=== PATIENT | female | born 1995 | race American Indian/Alaskan Native ===

== ENCOUNTER 2016-12-04 14:00 | Inpatient (IN) | payer MEDICAID ==
[~2016-12-04 14:00] MED LIST: Oxytocin/Normal Saline 30 UNIT/500 ML BAG IV ONE
[2016-12-04] MEDS ORDERED: Citric Acid/Sodium Citrate Solution 30 ML Cup PO ONE (14:27)
[2016-12-04] MEDS ORDERED: Sodium Chloride 0.9% 10 ML Syringe FLUSH PRN (14:27)
[2016-12-04] MEDS ORDERED: Morphine PF 5 MG/10 ML SDV ONE (14:37)
[2016-12-04] MEDS ORDERED: ePHEDrine 50 MG/ML SDV ONE (14:37)
[2016-12-04] MEDS ORDERED: Midazolam 1 MG/ML 2 ML SDV ONE (14:37)
[2016-12-04] MEDS: Lactated Ringers 1,000 ML IV SCH ×4 (14:45→21:00)
[2016-12-04] MEDS ORDERED: Oxytocin/Normal Saline 60 UNIT/1,000 ML BAG ONE (14:48)
--- NOTE | 2016-12-04 14:53 | PCM.PREANE ---
Preanesthetic Assessment - Procedure Proposed Procedure: Section - Anesthesia/Transfusion/Family Hx Anesthesia History: Prior Anesthesia Without Reaction Type of Anesthesia Reaction: Allergy Family History of Anesthesia Reaction: No Transfusion History: No Prior Transfusion(s) Intubation History: Unknown - Review of Systems General: No Symptoms Pulmonary: No Symptoms Cardiovascular: No Symptoms Gastrointestinal: No symptoms Neurological: No Symptoms Other: Reports: None - Physical Assessment NPO Status Date: 12/03/16 NPO Status Time: 22:00 Pulse: 98 O2 Sat by Pulse Oximetry: 99 Respiratory Rate: 20 Blood Pressure: 132/72 Temperature: 97.6 F Height: 1.73 m Weight: 95.254 kg ASA Class: 2E Mental Status: Alert & Oriented x3 Dentition: Reports: Normal Dentition Thyro-Mental Finger Breadths: 3 Mouth Opening Finger Breadths: 3 ROM/Head Extension: Full Lungs: Clear to auscultation, Normal respiratory effort Cardiovascular: Regular Rate, Regular Rhythm - Lab Values: Laboratory Last Values WBC 11.3 10^3/uL (5.0-10.0) H 12/04/16 14:28 RBC 3.47 10^6/uL (4.2-5.4) L 12/04/16 14:28 Hgb 8.9 g/dL (12.0-16.0) L 12/04/16 14:28 Hct 28.9 % (37.0-47.0) L 12/04/16 14:28 MCV 83.3 fL (80-100) 12/04/16 14:28 MCH 25.6 pg (27.0-34.0) L 12/04/16 14:28 MCHC 30.8 g/dL (33.0-35.0) L 12/04/16 14:28 Plt Count 217 10^3/uL (150-450) 12/04/16 14:28 Neut % (Auto) 72.2 % (42.2-75.2) 12/04/16 14:28 Lymph % (Auto) 17.0 % (20.5-50.1) L 12/04/16 14:28 Meigs % (Auto) 10.0 % (2-8) H 12/04/16 14:28 Eos % (Auto) 0.6 % (1.0-3.0) L 12/04/16 14:28 Baso % (Auto) 0.2 % (0.0-1.0) 12/04/16 14:28 - Allergies Allergies/Adverse Reactions: Allergies Allergy/AdvReac Type Severity Reaction Status Date / Time No Known Allergies Allergy Verified 12/04/16 14:47 - Blood Blood Available: No Product(s) Available: None - Anesthesia Plan Pre-Op Medication Ordered: None - Acknowledgements Anesthesia Type Planned: General Anesthesia, Spinal Pt an Appropriate Candidate for the Planned Anesthesia: Yes Alternatives and Risks of Anesthesia Discussed w Pt/Guardian: Yes Pt/Guardian Understands and Agrees with Anesthesia Plan: Yes Additional Comments: Patient ID'd. R/B of general and spinal anesthesia is discussed with patient. The plan A is spinal and B is general. Patient agreed consent signed. 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 OB/BYN History: , twin Musculoskeletal History: Reports: None Neurological History: Reports: None Psychiatric History: Reports: None Endocrine/Metabolic History: Reports: None Hematologic History: Reports: None Immunologic History: Reports: None Oncologic (Cancer) History: Reports: None Dermatologic History: Reports: None - Infectious Disease History Infectious Disease History: Reports: None - Past Surgical History Head Surgeries/Procedures: Reports: None - SUBSTANCE USE Smoking Status *Q: Unknown Ever Smoked Second Hand Smoke Exposure: No Days Per Week of Alcohol Use: 0 Recreational Drug Use History: No Recreational Drug Type: Reports: Marijuana/Hashish - HOME MEDS Home Medications: Home Meds Pre- Vitamins 1 tab PO DAILY 10/22/15 [History] Ranitidine HCl [Ranitidine] 150 mg PO BID 10/22/15 [History] Ferrous Sulfate 325 mg PO TIDMEALS 11/02/16 [History] - CURRENT (IN HOUSE) MEDS Current Meds: Current Medications Cefazolin Sodium/Dextrose 2 gm (/ Premix) 50 mls @ 100 mls/hr IV ONETIME ONE Stop: 12/04/16 14:56 Sodium Chloride (Saline Flush) 10 ml FLUSH ASDIRECTED PRN PRN Reason: Keep Vein Open Discontinued Medications Citric Acid/Sodium Citrate (Bicitra Solution) 30 ml PO ONETIME ONE Stop: 12/04/16 14:28 Ephedrine Sulfate (Ephedrine Sulfate) Confirm Administered Dose 50 mg .ROUTE .STK-MED ONE Stop: 12/04/16 14:38 Midazolam HCl (Versed 1 Mg/Ml) Confirm Administered Dose 2 mg .ROUTE .STK-MED ONE Stop: 12/04/16 14:38 Morphine Sulfate (Duramorph Pf) Confirm Administered Dose 5 mg .ROUTE .STK-MED ONE Stop: 12/04/16 14:38
[2016-12-04] MEDS: ceFAZolin 2 GM in Premix Bag 1 BAG IV ONE (15:09)
--- NOTE | 2016-12-04 15:55 | HP ---
The patient admitted on 12/04/2016 to [facility] in [place]. HISTORY OF PRESENT ILLNESS: The patient is a 21-year-old, G3, P1, at 36 weeks and 6 days with di-di twin IUP. The patient did experience loss of fluid just roughly about an hour ago. It was clear fluid. Really, no contractions. No vaginal bleeding. Good movement. OB HISTORY: She did have 1 miscarriage and then she had 1 vaginal delivery in February 2014, 3805 g. INTERN BRAND HISTORY: She did have chlamydia once, which was treated. No abnormal Paps. PAST MEDICAL HISTORY: Negative except for anemia. PAST SURGICAL HISTORY: Negative. LABORATORY DATA: The patient's labs, she did have a normal ultrasound and interval growth scans, blood type A positive, antibody negative, rubella immune, RPR negative, HIV negative, GC chlamydia negative. The patient's 1 hour was 157, but 3-hour was normal. She is GBS negative. Her last hemoglobin just this month was 9.7 consistent with the anemia. PHYSICAL EXAMINATION: Vital signs are stable. Blood pressure is normal. EFM is reactive, reassuring x2. A few contractions on the toco. The patient is grossly ruptured. Cervix is roughly 2-1/2, 75 and -1. Bedside ultrasound was performed and it definitely showed that twin A is in a breech presentation where twin B seemed to be more transverse. Lungs are clear to auscultation bilaterally. Heart had a regular rate and rhythm. ASSESSMENT AND PLAN: This is a di-di twin intrauterine at 36 plus weeks gestational age with PROM and malpresentation. The patient does consent to primary low-transverse . She also consents to blood if needed since she is anemic. The patient last ate last night. Therefore, we will proceed with this shortly. [facility] /[id number]
[2016-12-04] MEDS ORDERED: ePHEDrine 50 MG/ML SDV IV ONE (16:10)
[2016-12-04] MEDS ORDERED: Midazolam 1 MG/ML 2 ML SDV IV ONE (16:10)
[2016-12-04] MEDS ORDERED: Propofol 200 MG/20 ML SDV IV ONE (16:10)
[2016-12-04] MEDS ORDERED: Ondansetron 4 MG/2 ML SDV IV ONE (16:10)
[2016-12-04] MEDS ORDERED: Ketorolac 30 MG/ML SDV IVPUSH ONE (16:10)
[2016-12-04] MEDS ORDERED: Misoprostol 400 MCG (4 X 100 MCG TAB) RECTAL PRN (16:10)
[2016-12-04] MEDS ORDERED: Ondansetron 4 MG/2 ML SDV IV PRN (16:10)
[2016-12-04] MEDS ORDERED: Carboprost Tromethamine 250 MCG/1 ML Amp IM ONE (16:10)
[2016-12-04] MEDS ORDERED: ePHEDrine 50 MG/ML SDV IVPUSH PRN (16:10)
[2016-12-04] MEDS ORDERED: diphenhydrAMINE 50 MG/ML SDV IVPUSH PRN (16:10)
[2016-12-04] MEDS ORDERED: Methylergonovine 0.2 MG/1 ML Amp IM PRN (16:10)
[2016-12-04] MEDS ORDERED: Morphine PF 150 MG/30 ML PCA Syringe ONE (16:10)
[2016-12-04] MEDS ORDERED: Naloxone 2 MG/2 ML Syringe IVPUSH PRN (16:10)
[2016-12-04] MEDS ORDERED: Acetaminophen 325 MG Tab PO PRN (16:10)
[2016-12-04] MEDS ORDERED: Acetaminophen/oxyCODONE 325-5 MG Tab PO PRN (16:10)
[2016-12-04] MEDS ORDERED: Oxytocin/Normal Saline 30 UNIT/500 ML BAG IV SCH (16:30)
[2016-12-04] MEDS ORDERED: Ondansetron 4 MG/2 ML SDV ONE (16:31)
[2016-12-04] MEDS ORDERED: Ketorolac 30 MG/ML SDV ONE (16:31)
[2016-12-04] MEDS ORDERED: Propofol 200 MG/20 ML SDV ONE (16:32)
[2016-12-04] MEDS: Docusate Sodium 100 MG Cap PO PRN (22:06)
[2016-12-04] MEDS: Ketorolac 30 MG/ML SDV IVPUSH SCH (22:06)
[2016-12-04] MEDS: Simethicone 80 MG Tab.Chew PO PRN (22:06)
--- NOTE | 2016-12-04 22:11 | OR ---
DATE: 12/04/2016 PREOPERATIVE DIAGNOSIS: Diamniotic-dichorionic twin at 36+ weeks' gestational age with premature rupture of membranes and malpresentation. POSTOPERATIVE DIAGNOSIS: Diamniotic-dichorionic twin at 36+ weeks' gestational age with premature rupture of membranes and malpresentation. PROCEDURE: Primary low-transverse . CREDIT INTERN: Reilly Lazo MD ANESTHESIA: Spinal. FINDINGS: There was a viable twin . Twin A was delivered breech, baby weighed 3340 g, scores were 9 and 9. Twin B was delivered cephalic, 2710 g, scores 8 and 9. ESTIMATED BLOOD LOSS: 1200 mL. PROCEDURE IN DETAIL: The patient presented to Labor and Delivery, where she was found to be grossly ruptured also at 3 cm. Bedside ultrasound still showed the presenting twin to be breech; therefore, she did consent to a primary low- transverse . She did have anemia and also consented to transfusion as needed. The patient was taken to the operating room, where spinal anesthesia was induced. She was prepped and draped in the normal sterile fashion with a Munoz in place and leftward tilt. A skin incision was made 2 fingerbreadths above the pubic symphysis and carried down to the underlying fascia. Fascia was incised in the midline. Fascial incision was extended laterally using heavy scissors. Upper aspect of the fascia was grasped with Rosibel clamps, and the rectus muscles were dissected off bluntly and with the heavy scissors. Lower aspect of the fascia was grasped with Rosibel clamps, and again, the rectus muscles were dissected off bluntly and with the heavy scissors. The rectus muscles were in the midline. Peritoneum was entered with blunt finger dissection, and the Barak retractor was then placed. The vesicouterine peritoneum was grasped with a pickup, entered sharply with the Metzenbaum scissors, and the bladder flap was created digitally. The lower uterine segment was incised in a transverse fashion with a scalpel and that incision was extended using the Darnell method. The first infant's breech was grasped without any difficulties. The infant was delivered. Cord was cut and clamped, and the was handed off to Dr. Valdez. Cord blood was collected. The AROM was performed of the second amniotic sac and that was delivered vertex without any difficulties. Cord was cut and clamped. The infant was again handed off to Dr. Valdez, and cord blood was collected. Both placentas were then delivered and sent to Pathology. The uterus was exteriorized and cleared of all clots and debris. The uterus was given vigorous massage, and the hysterotomy was repaired with a running locked 0 Vicryl with a second layer of 0 Vicryl imbricating for excellent hemostasis. The uterus was returned to the abdomen. Pelvis was copiously irrigated, and the Barak retractor was removed. The peritoneum was reapproximated using a 3-0 Vicryl. Fascia was repaired using a running 0 Vicryl, and the subcutaneous fat was irrigated. The skin was repaired using a 4-0 Vicryl on a Tico needle with Steri-Strips over that. The patient tolerated the procedure well. Sponge, lap, and needle counts were correct x2. The patient was taken to the recovery room in stable condition. Both babies were doing well. We will recheck her hemoglobin in the morning. [facility] /[id number]
[2016-12-05] MEDS: ceFAZolin 2 GM in Premix Bag 1 BAG IV ONE (00:58)
[2016-12-05] MEDS: Ketorolac 30 MG/ML SDV IVPUSH SCH ×2 (04:45→10:25)
[2016-12-05] MEDS: Lactated Ringers 1,000 ML IV SCH (04:58)
[2016-12-05] MEDS: Prenatal Multivitamin with Calcium/Folic Acid/Iron Tab PO SCH (08:54)
[2016-12-05] MEDS: Ferrous Sulfate 325 MG Tab PO SCH ×3 (08:54→17:27)
[2016-12-05] MEDS: Simethicone 80 MG Tab.Chew PO PRN ×2 (08:54→21:21)
[2016-12-05] MEDS: Docusate Sodium 100 MG Cap PO PRN ×2 (08:55→21:21)
--- NOTE | 2016-12-05 09:10 | PN ---
DATE: 12/05/2016 Postoperative day #1, status post primary low transverse with twins with unstable lie. SUBJECTIVE: The patient is tolerating some p.o.'s and has ambulated once. No flatus. Munoz is in place. She denies any chest pain, shortness of breath, or lightheadedness. OBJECTIVE: Vital Signs: Temperature 97.7, heart rate 79, blood pressure 107/54, and respiratory rate is 14. Appearance: Lying in the bed in no distress. Lungs: Clear to auscultation bilaterally. Heart: S1 and S2. Regular rate and rhythm. Abdomen: Firm uterus at around +1 above the umbilicus. Aquacel dressing appears dry and intact. JUAN JOSÉ hose and SCDs are on. LABORATORY DATA: White cell count 13.1, hemoglobin 6.9, and platelets 197,000. Predelivery hemoglobin was 8.9. ASSESSMENT AND PLAN: 1. Postoperative day #1, status post primary low transverse section with 2-layer uterine closure. 2. Anemia of acute blood loss. Hemoglobin dropping from 8.9 to 6.9. At this point in time, shared decision was made with the patient to recheck a CBC later in the day, we will follow symptoms and vitals, and if still low, may consider blood transfusion. I did discuss risks, benefits, alternatives, and complications of this. She understands and agrees if it is felt necessary, and otherwise we will follow closely. [facility] /[id number]
--- NOTE | 2016-12-05 15:25 | PCM.POSTAN ---
POST ANESTHESIA ASSESSMENT - MENTAL STATUS Mental Status: alert, oriented - VITAL SIGNS Pulse Rate: 88 SaO2: 99 Resp Rate: 18 Blood Pressure: 128/78 Temperature: 97 F - RESPIRATORY Respiratory Status: respiratory rate WNL, airway patent, O2 saturation stable - CARDIOVASCULAR CV Status: pulse rate WNL, blood pressure stable - GASTROINTESTINAL GI Status: no symptoms - POST OP HYDRATION Hydration Status: adequate & stable (Patient is sitting in bed. Tolerated procedure well and epigastric pain is controlled well with morphine. Regained the full function of her lower extremeties.)
[2016-12-05] MEDS: Ibuprofen 800 MG Tab PO PRN (21:21)
[2016-12-05] MEDS: Acetaminophen/oxyCODONE 325-5 MG Tab PO PRN (22:52)
[2016-12-06] MEDS: Simethicone 80 MG Tab.Chew PO PRN ×2 (09:00→22:33)
[2016-12-06] MEDS: Acetaminophen/oxyCODONE 325-5 MG Tab PO PRN ×2 (09:00→22:33)
[2016-12-06] MEDS: Prenatal Multivitamin with Calcium/Folic Acid/Iron Tab PO SCH (09:00)
[2016-12-06] MEDS: Ferrous Sulfate 325 MG Tab PO SCH ×3 (09:00→20:01)
[2016-12-06] MEDS: Docusate Sodium 100 MG Cap PO PRN ×2 (09:01→22:32)
--- NOTE | 2016-12-06 12:53 | PN ---
DATE: 12/06/2016 SUBJECTIVE: Postoperative day #2, status post primary for breech twins is doing well. She has been ambulating and tolerating a regular diet, passing flatus, and voiding without difficulties. Denies any chest pain or shortness of breath. Admits to feeling some soreness today more so than she did yesterday. Lochia has been minimal. No fever. No shortness of breath. Denies any lightheadedness or fatigue associated with her anemia, and declines blood transfusion. OBJECTIVE: Vital Signs: Temperature is 97.3, pulse of 68, blood pressure 105/55, and respiratory rate of 20, with an O2 saturation 98% on room air. Heart: Regular without obvious murmur. Lungs: Clear to auscultation bilaterally. Abdomen: Soft and nontender. Bowel sounds are positive in all 4 quadrants. Area near the incision is tender as would be expected. Dressing was removed and the incision is dry, and intact with Steri-Strips in place. A small amount of old dry blood, but nothing fresh and no active oozing or bleeding. Extremities: No edema, erythema, or tenderness noted. Skin: pallor noted. LABORATORY DATA: Admission hemoglobin 8.9, post-op 6.9, yesterday's was 7.4, today's is 6.9, Platelets have remained stable. ASSESSMENT: 1. Postoperative day #2, status post primary section for twins. 2. Anemia of and anemia of acute blood loss. 3. Obesity. 4. Status post premature rupture of membranes with malpresentation. PLAN: Continue routine postoperative cares and anticipate discharge home tomorrow as long as all continues to go well. Her questions were answered. Discussed with her risks and benefits of blood transfusion and she declines. [facility] /[id number] LOAN
[2016-12-06] MEDS: Ibuprofen 800 MG Tab PO PRN (14:48)
[2016-12-07] MEDS: Acetaminophen/oxyCODONE 325-5 MG Tab PO PRN ×2 (05:27→09:31)
[2016-12-07] MEDS: Prenatal Multivitamin with Calcium/Folic Acid/Iron Tab PO SCH (09:31)
[2016-12-07] MEDS: Ferrous Sulfate 325 MG Tab PO SCH ×2 (09:31→09:44)
[2016-12-07] MEDS: Docusate Sodium 100 MG Cap PO PRN (09:31)
[2016-12-07] MEDS: Simethicone 80 MG Tab.Chew PO PRN (09:37)
[2016-12-07] MEDS: Ibuprofen 800 MG Tab PO PRN (09:37)
[2016-12-07 13:09] VITALS: BP 118/64
--- NOTE | 2016-12-12 04:22 | DISCH ---
BRIEF HISTORY: A 21-year-old, 3, para 1-0-1-1, presented in spontaneous labor at 36-6/7th weeks gestation with twin gestation, baby A breech and baby B vertex. See admission history and physical for full details. Primary low transverse section was carried out by Dr. Acharya without complications resulting in delivery of baby A boy, scores 9 and 9, weight 3340 g. Baby B is a girl, scores 8 and 9, weight 2710 g. Surgery was without complications. See operative report for full details. HOSPITAL COURSE: Hospital course has been good. The patient has been meeting post-operative milestones, ambulating, tolerating, regular diet, passing flatus, voiding without difficulties. No chest pain or shortness of breath. Bleeding has been minimal. She is bottle feeding her babies and has not had any other problems noted. She did have significant blood loss during surgery and hemoglobin being very low and she had pallor, but was otherwise fairly asymptomatic and refusing blood transfusion. On day of discharge, she was doing well and there were no contraindications to discharge. DISCHARGE CONDITION: Good. PHYSICAL EXAMINATION: Vital Signs: Temperature is 98.8, pulse 77, blood pressure 118/64, respiratory rate of 18, and O2 saturations 99% on room air. HEENT: Remarkable only for some pallor in the face and lips. Heart: Regular without obvious murmur. Lungs: Clear to auscultation bilaterally. Abdomen: Soft without masses. Uterus is firm and below the umbilicus. Incision site is clean, dry, and intact. Extremities: Trace edema. No erythema or tenderness. LABORATORY DATA: Show an admission hemoglobin of 8.9, platelets of 217. Lowest hemoglobin during her stay was 6.9; at discharge, it was back up to 7.5. DISPOSITION: Home with family. DISCHARGE MEDICATIONS: 1. Iron 325 mg twice daily. 2. Colace 100 mg twice daily. 3. Ibuprofen 800 mg every 8 hours as needed for pain. 4. Percocet 5/325 mg one to two tablets every 4 to 6 hours as needed for pain. 5. vitamins, continue 1 daily. FOLLOWUP: She will be seen in the office in the next few days for postoperative check when she brings in the twins. DISCHARGE INSTRUCTIONS: Routine postoperative care instructions provided, specifically to come in if she has any complications with her wound such as dehiscence, drainage, or bleeding. Also, if she develops any signs or symptoms of infection such as fever, chills, foul-smelling drainage, discharge, increased pain or tenderness, or any other concerns. Her questions have been answered. [facility] /[id number] LOAN
== END 2016-12-07 13:00 | disposition home or self-care (01) | DRG 765 ==
LOC: UNDOADMOB 14:00 → DL.OB 14:00 → OBSVTOIN 14:28 → DL.MS 12-06 10:21 → EDSTATUS 12-12 07:30
PROVIDERS: ADMIT Family Medicine; ATTEND Family Medicine
DX: O32.1XX1 Maternal care for breech presentation, fetus 1 (principal); D62 Acute posthemorrhagic anemia; O42.913 Preterm premature rupture of membranes, unspecified as to length of time between rupture and onset of labor, third trimester; Z3A.36 36 weeks gestation of pregnancy; Z37.2 Twins, both liveborn; O30.043 Twin pregnancy, dichorionic/diamniotic, third trimester; O99.019 Anemia complicating pregnancy, unspecified trimester; O99.03 Anemia complicating the puerperium
CPT/HCPCS: 01961; 36415; 82962; 85018; 85025; 85027; 86850; 86900; 86901; A9270-GY; J0690; J1200; J1885; J2250; J2274; J2405; J2590; J2704; J7050; J7120

== ENCOUNTER 2018-06-23 12:52 | Emergency (ER) | payer SELFPAY ==
[2018-06-23] MEDS ORDERED: Sodium Chloride 0.9% 10 ML Syringe FLUSH PRN (13:09)
[2018-06-23] MEDS ORDERED: Sodium Chloride 0.9% 1,000 ML IV ONE (13:19)
[2018-06-23] MEDS ORDERED: HYDROmorphone 1 MG/ML Syringe IVPUSH ONE (13:19)
[2018-06-23] MEDS ORDERED: Ondansetron 4 MG/2 ML SDV IV ONE (13:19)
[2018-06-23 13:41] LABS: ANION GAP 13.5; CHLORIDE,CL 103 mmol/L (101-111); SODIUM,NA 136 mmol/L (135-145)
[2018-06-23] MEDS ORDERED: Iopamidol 612 MG/ML 100 ML Bottle IVPUSH ONE (14:06)
--- NOTE | 2018-06-23 14:54 | CT ---
Clinical history: 23-year-old 220 pound female emergency department with right upper quadrant (RUQ) abdominal pain. No surgeries. Scan technique: Volume acquisition of data from the abdomen and pelvis obtained without oral contrast but during intravenous administration 100 cc nonionic Isovue contrast (3 cc/s via injector) while the patient was lying supine on the Siemens multi slice CT scanner [place], [place]. All data archived in the PACS system for storage, reformatting axial/sagittal/coronal planes and study. Interpretation: Abnormal. 1. The gallbladder is distended and inhomogeneously dense with what appear to be noncalcified intraluminal stones (elective ultrasound confirmation of probable stones recommended). 2. Normal hepatic size, anatomic configuration and homogeneous density. No intrahepatic cystic or solid mass lesion but, specifically, abnormal dilatation (9.1 mm) of the common bile duct (CBD) suggesting possibility of tiny noncalcified stone impacted distally at the ampulla of Vater. No abnormal dilatation of the intrahepatic biliary ducts and normal-appearing pancreas. 3. Stomach, spleen, adrenal glands and kidneys unremarkable. No renal cortical mass lesion, nephrolithiasis or obstructive uropathy. Symmetrically distended normal appearing urinary bladder. 4. Solitary 2.5 cm diameter right ovarian cyst (smaller 1.5 cm diameter left ovarian cyst). Normal midline uterus. 5. Normal appendix RLQ. Terminal ileum unremarkable. No pelvic or abdominal mass lesion, mesenteric or retroperitoneal lymphadenopathy, signs of mechanical bowel obstruction, inflammatory "dirty" peritoneal fat, ascites or free intraperitoneal air. 6. Normal heart. Lung bases clear. Normal caliber abdominal aorta. Lumbar spine unremarkable. CONCLUSION: Abnormal appearance (diseased) gallbladder and dilated common bile duct (see above).
--- NOTE | 2018-06-23 15:21 | EDM.PDOC ---
Scribed by Kayla Avendano 06/23/18 [id number] for Neel Ferrer MD ED HPI GENERAL MEDICAL PROBLEM - General Chief Complaint: Abdominal Pain Stated Complaint: STOMACH ACHE [id number] Time Seen by Provider: 06/23/18 12:57 Source of Information: Reports: Patient, RN, RN Notes Reviewed History Limitations: Reports: No Limitations - History of Present Illness INITIAL COMMENTS - FREE TEXT/NARRATIVE: Patient presents to ER with complaint of RUQ abdominal pain that radiates to the right mid-to upper back, and is associated with nausea and vomiting since 10AM this morning. She has had several similar episodes of RUQ pain, but never this severe, and never for this long of duration. She states she was here a month to six weeks ago and told she had an ulcer and not to eat fatty foods. She was also advised to get an outpatient gallbladder evaluation, but has not had that appointment yet. She last ate sausage, eggs and greasy food last night. No fever or chills. She is currently nauseated. Denies diarrhea, constipation, or urinary symptoms. Onset: Today Duration: Getting Worse Location: Reports: Abdomen Quality: Reports: Ache Severity: Severe Improves with: Reports: None Worsens with: Reports: Other (eating fatty foods) Associated Symptoms: Reports: No Other Symptoms Epigastric Pain Score (Numeric/FACES): 8 - Related Data Allergies Allergy/AdvReac Type Severity Reaction Status Date / Time No Known Allergies Allergy Verified 06/23/18 13:05 Home Meds: Home Meds Ranitidine HCl [Ranitidine] 150 mg PO BID 10/22/15 [History] Ibuprofen [IJD: Ibuprofen] 600 mg PO Q6H PRN #40 tablet 12/07/16 [Rx] Past Medical History - Past Health History Medical/Surgical History: Denies Medical/Surgical History HEENT History: Reports: None Cardiovascular History: Reports: None Respiratory History: Reports: None Gastrointestinal History: Reports: None Genitourinary History: Reports: None SHIPPING LEAD History: Reports: Other SHIPPING LEAD History: , twin Musculoskeletal History: Reports: None Neurological History: Reports: None Psychiatric History: Reports: None Endocrine/Metabolic History: Reports: None Hematologic History: Reports: None Immunologic History: Reports: None Oncologic (Cancer) History: Reports: None Dermatologic History: Reports: None - Infectious Disease History Infectious Disease History: Reports: None - Past Surgical History Head Surgeries/Procedures: Reports: None Social & Family History - Family History Family Medical History: Noncontributory - Caffeine Use Caffeine Use: Reports: Soda - Living Situation & Occupation Living situation: Reports: with Family ED ROS GENERAL - Review of Systems Review Of Systems: ROS reveals no pertinent complaints other than HPI. ED EXAM, GI/ABD - Physical Exam Exam: See Below Exam Limited By: No Limitations General Appearance: Alert, WD/WN, No Apparent Distress, Obese Eyes: Bilateral: Normal Appearance (No scleral icterus), EOMI Nose: Normal Inspection Throat/Mouth: Normal Inspection, Normal Lips, Normal Teeth, Normal Gums, Normal Oropharynx, Normal Voice, No Airway Compromise Head: Atraumatic, Normocephalic Neck: Normal Inspection, Supple, Non-Tender, Full Range of Motion Respiratory/Chest: No Respiratory Distress, Lungs Clear, Normal Breath Sounds, No Accessory Muscle Use, Chest Non-Tender Cardiovascular: Regular Rate, Rhythm GI/Abdominal Exam: Normal Bowel Sounds, Soft, No Distention, Tender (RUQ). No: Guarding, Rigid, Rebound (Female) Exam: Deferred Rectal (Female) Exam: Deferred Back Exam: Normal Inspection, Full Range of Motion. No: CVA Tenderness (L), CVA Tenderness (R) Extremities: Normal Inspection Neurological: Alert, Oriented, No Motor/Sensory Deficits Psychiatric: Normal Affect, Normal Mood Skin Exam: Warm, Dry, Intact, Normal Color, No Rash Course - Vital Signs Last Recorded V/S: Last Vital Signs Temp 36.3 C 06/23/18 13:51 Pulse 68 06/23/18 13:51 Resp 18 06/23/18 13:51 BP 109/62 06/23/18 13:51 Pulse Ox 99 06/23/18 13:51 - Orders/Labs/Meds Orders: Active Orders 24 hr Category Date Time Status Peripheral IV Care [RC] . DIRECTED Care 06/23/18 13:09 Active CULTURE URINE [RM] Stat Lab 06/23/18 13:58 Received Sodium Chloride 0.9% [Saline Flush] Med 06/23/18 13:09 Active 10 ml FLUSH ASDIRECTED PRN Peripheral IV Insertion Adult [OM.PC] Stat Oth 06/23/18 13:09 Ordered Medication Orders Sodium Chloride (Saline Flush) 10 ml FLUSH ASDIRECTED PRN PRN Reason: Keep Vein Open Last Admin: 06/23/18 13:31 Dose: 10 ml Labs: Laboratory Tests 06/23/18 06/23/18 06/23/18 Range/Units 13:13 13:13 13:58 WBC 8.8 (5.0-10.0) 10^3/uL RBC 4.24 (4.2-5.4) 10^6/uL Hgb 12.4 (12.0-16.0) g/dL Hct 36.6 L (37.0-47.0) % MCV 86.3 (80-100) fL MCH 29.2 (27.0-34.0) pg MCHC 33.9 (33.0-35.0) g/dL Plt Count 263 (150-450) 10^3/uL Neut % (Auto) 79.2 H (42.2-75.2) % Lymph % (Auto) 12.3 L (20.5-50.1) % [place] % (Auto) 7.8 (2-8) % Eos % (Auto) 0.6 L (1.0-3.0) % Baso % (Auto) 0.1 (0.0-1.0) % Sodium 136 (135-145) mmol/L Potassium 3.5 L (3.6-5.0) mmol/L Chloride 103 (101-111) mmol/L Carbon Dioxide 23.0 (21.0-31.0) mmol/L Anion Gap 13.5 BUN 6 L (7-18) mg/dL Creatinine 0.6 (0.6-1.3) mg/dL Est Cr Clr Drug Dosing 145.85 mL/min Estimated GFR (MDRD) > 60 BUN/Creatinine Ratio 10.00 Glucose 110 H (74-105) mg/dL Calcium 8.8 (8.4-10.2) mg/dl Total Bilirubin 1.3 H (0.2-1.0) mg/dL AST 280 H (10-42) IU/L ALT 129 H (10-60) IU/L Alkaline Phosphatase 81 (42-121) IU/L Total Protein 6.5 L (6.7-8.2) g/dl Albumin 3.6 (3.2-5.5) g/dl Globulin 2.9 Albumin/Globulin Ratio 1.24 Amylase 149 H (28-100) U/L Lipase 123 H (22-51) U/L Urine Color Yellow (YELLOW) Urine Appearance Slightly cloudy (CLEAR) Urine pH 7.5 (5.0-9.0) Ur Specific [place] 1.015 (1.005-1.030) Urine Protein Negative (NEGATIVE) Urine Glucose (UA) Negative (NEGATIVE) Urine Ketones Negative (NEGATIVE) Urine Occult Blood Large H (NEGATIVE) Urine Nitrite Negative (NEGATIVE) Urine Bilirubin Negative (NEGATIVE) Urine Urobilinogen 1.0 (0.2-1.0) mg/dL Ur Leukocyte Esterase Trace H (NEGATIVE) Urine RBC >100 H /HPF Urine WBC 0-5 (0-5/HPF) /HPF Ur Epithelial Cells Moderate H /HPF Urine Bacteria Few (0-FEW/HPF) /HPF Urine HCG, Qual 06/23/18 Range/Units 13:58 WBC (5.0-10.0) 10^3/uL RBC (4.2-5.4) 10^6/uL Hgb (12.0-16.0) g/dL Hct (37.0-47.0) % MCV (80-100) fL MCH (27.0-34.0) pg MCHC (33.0-35.0) g/dL Plt Count (150-450) 10^3/uL Neut % (Auto) (42.2-75.2) % Lymph % (Auto) (20.5-50.1) % [place] % (Auto) (2-8) % Eos % (Auto) (1.0-3.0) % Baso % (Auto) (0.0-1.0) % Sodium (135-145) mmol/L Potassium (3.6-5.0) mmol/L Chloride (101-111) mmol/L Carbon Dioxide (21.0-31.0) mmol/L Anion Gap BUN (7-18) mg/dL Creatinine (0.6-1.3) mg/dL Est Cr Clr Drug Dosing mL/min Estimated GFR (MDRD) BUN/Creatinine Ratio Glucose (74-105) mg/dL Calcium (8.4-10.2) mg/dl Total Bilirubin (0.2-1.0) mg/dL AST (10-42) IU/L ALT (10-60) IU/L Alkaline Phosphatase (42-121) IU/L Total Protein (6.7-8.2) g/dl Albumin (3.2-5.5) g/dl Globulin Albumin/Globulin Ratio Amylase (28-100) U/L Lipase (22-51) U/L Urine Color (YELLOW) Urine Appearance (CLEAR) Urine pH (5.0-9.0) Ur Specific [place] (1.005-1.030) Urine Protein (NEGATIVE) Urine Glucose (UA) (NEGATIVE) Urine Ketones (NEGATIVE) Urine Occult Blood (NEGATIVE) Urine Nitrite (NEGATIVE) Urine Bilirubin (NEGATIVE) Urine Urobilinogen (0.2-1.0) mg/dL Ur Leukocyte Esterase (NEGATIVE) Urine RBC /HPF Urine WBC (0-5/HPF) /HPF Ur Epithelial Cells /HPF Urine Bacteria (0-FEW/HPF) /HPF Urine HCG, Qual Negative Meds: Medications Generic Name Dose Route Start Last Admin Trade Name Freq PRN Reason Stop Dose Admin Sodium Chloride 10 ml 06/23/18 13:09 06/23/18 13:31 Saline Flush FLUSH 10 ml ASDIRECTED PRN Administration Keep Vein Open Discontinued Medications Generic Name Dose Route Start Last Admin Trade Name Freq PRN Reason Stop Dose Admin Hydromorphone HCl 1 mg 06/23/18 13:19 06/23/18 13:28 Dilaudid IVPUSH 06/23/18 13:20 1 mg ONETIME ONE Administration Sodium Chloride 1,000 mls @ 999 mls/hr 06/23/18 13:19 06/23/18 13:26 Normal Saline IV 06/23/18 14:19 999 mls/hr .BOLUS ONE Administration Iopamidol 100 ml 06/23/18 14:06 06/23/18 14:18 Isovue-300 (61%) IVPUSH 06/23/18 14:07 100 ml ONETIME ONE Administration Ondansetron HCl 4 mg 06/23/18 13:19 06/23/18 13:27 Zofran IV 06/23/18 13:20 4 mg ONETIME ONE Administration - Radiology Interpretation Free Text/Narrative:: CT abdomen and pelvis: The gallbladder is distended and inhomogeneously dense with what appear to be noncalcified intraluminal stones (elective ultrasound confirmation of probable stones recommended). Normal hepatic size, anatomic configuration and homogeneous density. No intrahepatic cystic or solid mass lesion but, specifically, abnormal dilatation (9.1mm) of the common bile duct ( CBD) suggesting possibility of tiny noncalcified stone impacted distally at the ampulla of Vater. No abnormal dilatation of the intrahepatic biliary ducts and normal-appearing pancreas. Stomach, spleen, adrenal glands and kidneys unremarkable. No renal cortical mass lesion, nephrolithiasis or obstructive uropathy. Symmetrically distended normal appearing urinary bladder. Solitary 2.5cm diameter right ovarian cyst (smaller 1.5cm diameter left ovarian cyst). Normal midline uterus. Normal appendix RLQ. Terminal ileum unremarkable. No pelvic or abdominal mass lesion, mesenteric or retroperitoneal lymphadenopathy, signs of mechanical bowel intraperitoneal air. Normal heart. Lung bases clear. Normal caliber abdominal aorta. Lumbar spine unremarkable. See rad report. Departure - Departure Time of Disposition: 15:20 Disposition: Home, Self-Care 01 Condition: Fair Clinical Impression: Acute cholecystitis due to biliary calculus - Discharge Information *PRESCRIPTION DRUG MONITORING PROGRAM REVIEWED*: Not Applicable *COPY OF PRESCRIPTION DRUG MONITORING REPORT IN PATIENT CAROLYNN: Not Applicable Forms: ED Department Discharge, Interfacility Transfer EMTALA - My Orders Last 24 Hours: My Active Orders 06/23/18 13:09 Peripheral IV Care [RC] . DIRECTED Sodium Chloride 0.9% [Saline Flush] 10 ml FLUSH ASDIRECTED PRN Peripheral IV Insertion Adult [OM.PC] Stat 06/23/18 13:58 CULTURE URINE [RM] Stat - Assessment/Plan Last 24 Hours: My Active Orders 06/23/18 13:09 Peripheral IV Care [RC] . DIRECTED Sodium Chloride 0.9% [Saline Flush] 10 ml FLUSH ASDIRECTED PRN Peripheral IV Insertion Adult [OM.PC] Stat 06/23/18 13:58 CULTURE URINE [RM] Stat I have read and agree with the documentation that has been completed regarding this visit. By signing this record, I attest that the documentation was completed in my physical presence and is an accurate record of the encounter.
[2018-06-23 15:28] VITALS: BP 121/85
== END 2018-06-23 15:51 | disposition home or self-care (01) ==
LOC: DL.ED 12:52
DX: K80.00 Calculus of gallbladder with acute cholecystitis without obstruction (principal); Z79.899 Other long term (current) drug therapy
CPT/HCPCS: 36415; 74177; 80053; 81001; 81025; 82150; 83690; 85025; 87086; 96361; 96374; 96375; 99284; J1170; J2405; J7030; Q9967

== ENCOUNTER 2018-07-04 12:25 | Emergency (ER) | payer SELFPAY ==
[2018-07-04] MEDS ORDERED: Promethazine 25 MG/ML SDV IM ONE (12:37)
[2018-07-04] MEDS ORDERED: Sodium Chloride 0.9% 1,000 ML IV ONE (12:37)
[2018-07-04] MEDS ORDERED: Ketorolac 30 MG/ML SDV IVPUSH ONE (12:37)
--- NOTE | 2018-07-04 12:46 | EDM.PDOC ---
ED HPI GENERAL MEDICAL PROBLEM - General Chief Complaint: Headache Stated Complaint: BAD HEADACHES Time Seen by Provider: 07/04/18 12:38 Source of Information: Reports: Patient History Limitations: Reports: No Limitations - History of Present Illness INITIAL COMMENTS - FREE TEXT/NARRATIVE: This 23 yo female patient reports to the ED with a right sided headache with nausea and vomiting. The patient reports she has had 4 similar episodes in the past week (since she had her gallbladder removed). The patient reports she has taken ibuprofen with no symptom relief. The patient has not been in to see her primary care facility. The patient reports she does not have any medications for nausea at home. The patient reports she had an oven baked piece of chicken last night and has not eaten yet today. Onset: Today Duration: Constant Location: Reports: Head (right sided headache) Quality: Reports: Ache, Throbbing Severity: Severe Improves with: Reports: None Worsens with: Reports: None Context: Reports: Other Associated Symptoms: Reports: Headaches, Nausea/Vomiting Treatments DEVELOPMENT EXPERT: Reports: NSAIDS Right Headache Pain Score (Numeric/FACES): 9 - Related Data Allergies Allergy/AdvReac Type Severity Reaction Status Date / Time No Known Allergies Allergy Verified 07/04/18 13:19 Home Meds: Home Meds Ranitidine HCl [Ranitidine] 150 mg PO BID 10/22/15 [History] Ibuprofen [IJD: Ibuprofen] 600 mg PO Q6H PRN #40 tablet 12/07/16 [Rx] Past Medical History - Past Health History Medical/Surgical History: Denies Medical/Surgical History HEENT History: Reports: None Cardiovascular History: Reports: None Respiratory History: Reports: None Gastrointestinal History: Reports: None Genitourinary History: Reports: None GO GO DANCER History: Reports: Other GO GO DANCER History: , twin Musculoskeletal History: Reports: None Neurological History: Reports: None Psychiatric History: Reports: None Endocrine/Metabolic History: Reports: None Hematologic History: Reports: None Immunologic History: Reports: None Oncologic (Cancer) History: Reports: None Dermatologic History: Reports: None - Infectious Disease History Infectious Disease History: Reports: None - Past Surgical History Head Surgeries/Procedures: Reports: None GI Surgical History: Reports: Cholecystectomy Social & Family History - Family History Family Medical History: Noncontributory - Tobacco Use Smoking Status *Q: Current Some Day Smoker Years of Tobacco use: 5 Packs/Tins Daily: 0.1 - Caffeine Use Caffeine Use: Reports: Soda - Recreational Drug Use Recreational Drug Use: Yes Recreational Drug Type: Reports: Marijuana/Hashish - Living Situation & Occupation Living situation: Reports: with Family ED ROS GENERAL - Review of Systems Review Of Systems: ROS reveals no pertinent complaints other than HPI. - Physical Exam Exam: See Below Exam Limited By: No Limitations General Appearance: Alert, WD/WN, Moderate Distress Eye Exam: Bilateral Eye: EOMI, Normal Inspection, PERRL Ears: Normal External Exam, Normal Canal, Hearing Grossly Normal, Normal TMs Nose: Normal Inspection, Normal Mucosa, No Blood Throat/Mouth: Normal Inspection, Normal Lips, Normal Teeth, Normal Gums, Normal Oropharynx, Normal Voice, No Airway Compromise Head Exam: Atraumatic, Normocephalic Neck: Normal Inspection, Supple, Non-Tender, Full Range of Motion Respiratory/Chest: No Respiratory Distress, Lungs Clear, Normal Breath Sounds, No Accessory Muscle Use, Chest Non-Tender Cardiovascular: Normal Peripheral Pulses, Regular Rate, Rhythm, No Edema, No Gallop, No JVD, No Murmur, No Rub GI/Abdominal: Normal Bowel Sounds, Soft, Non-Tender, No Organomegaly, No Distention, No Abnormal Bruit, No Mass (Female) Exam: Deferred Rectal (Female) Exam: Deferred Neuro Exam (Abbreviated): Alert, Oriented, CN II-XII Intact, Normal Cognition, Normal Gait, Normal Reflexes, No Motor/Sensory Deficits Back Exam: Normal Inspection, Full Range of Motion, NT Extremities: Normal Inspection, Normal Range of Motion, Non-Tender, No Pedal Edema, Normal Capillary Refill Psychiatric: Normal Affect, Normal Mood Skin Exam: Warm, Dry, Intact, Normal Color, No Rash Course - Vital Signs Last Recorded V/S: Last Vital Signs Temp 36.2 C 07/04/18 12:33 Pulse 76 07/04/18 12:33 Resp 16 07/04/18 12:33 BP 121/62 07/04/18 12:33 Pulse Ox 98 07/04/18 12:33 - Orders/Labs/Meds Orders: Active Orders 24 hr Category Date Time Status HCG QUALITATIVE,URINE [URCHEM] Stat Lab 07/04/18 12:38 Ordered UA RFX VAISHALI AND CULT IF INDIC [URIN] Urgent Lab 07/04/18 12:38 Ordered Labs: Laboratory Tests 07/04/18 07/04/18 Range/Units 12:42 12:42 WBC 9.8 (5.0-10.0) 10^3/uL RBC 4.31 (4.2-5.4) 10^6/uL Hgb 12.7 (12.0-16.0) g/dL Hct 37.9 (37.0-47.0) % MCV 87.9 (80-100) fL MCH 29.5 (27.0-34.0) pg MCHC 33.5 (33.0-35.0) g/dL Plt Count 305 (150-450) 10^3/uL Neut % (Auto) 60.9 (42.2-75.2) % Lymph % (Auto) 28.0 (20.5-50.1) % [place] % (Auto) 8.8 H (2-8) % Eos % (Auto) 2.1 (1.0-3.0) % Baso % (Auto) 0.2 (0.0-1.0) % Sodium 136 (135-145) mmol/L Potassium 3.4 L (3.6-5.0) mmol/L Chloride 106 (101-111) mmol/L Carbon Dioxide 20.0 L (21.0-31.0) mmol/L Anion Gap 13.4 BUN 10 (7-18) mg/dL Creatinine 0.6 (0.6-1.3) mg/dL Est Cr Clr Drug Dosing 145.85 mL/min Estimated GFR (MDRD) > 60 BUN/Creatinine Ratio 16.66 Glucose 109 H (74-105) mg/dL Calcium 8.8 (8.4-10.2) mg/dl Total Bilirubin 0.7 (0.2-1.0) mg/dL AST 21 (10-42) IU/L ALT 18 (10-60) IU/L Alkaline Phosphatase 62 (42-121) IU/L Total Protein 6.9 (6.7-8.2) g/dl Albumin 3.8 (3.2-5.5) g/dl Globulin 3.1 Albumin/Globulin Ratio 1.23 Meds: Medications Discontinued Medications Generic Name Dose Route Start Last Admin Trade Name Freq PRN Reason Stop Dose Admin Sodium Chloride 1,000 mls @ 999 mls/hr 07/04/18 12:37 07/04/18 12:43 Normal Saline IV 07/04/18 13:37 999 mls/hr .BOLUS ONE Administration Ketorolac Tromethamine 30 mg 07/04/18 12:37 07/04/18 12:43 Toradol IVPUSH 07/04/18 12:38 30 mg ONETIME ONE Administration Promethazine HCl 25 mg 07/04/18 12:37 07/04/18 12:43 Phenergan IM 07/04/18 12:38 25 mg ONETIME ONE Administration - Re-Assessments/Exams Free Text/Narrative Re-Assessment/Exam: 07/04/18 13:20 The patient reports her headache is down to a 5/10 at this time. The patient reports she is feeling better slowly. The patient has gotten 1/2 of the liter of fluid, Toradol and Phenergan at this point. Departure - Departure Time of Disposition: 14:02 Disposition: Home, Self-Care 01 Condition: Fair Clinical Impression: Tension-type headache - Discharge Information *PRESCRIPTION DRUG MONITORING PROGRAM REVIEWED*: Yes *COPY OF PRESCRIPTION DRUG MONITORING REPORT IN PATIENT CAROLYNN: No Instructions: Tension Headache, Adult, [id number] Forms: ED Department Discharge Care Plan Goals: The patient was advised of the examination and lab results during the visit. The patient was given a liter of IV fluid, IV Toradol and IM Phenergan while in the ED. The patient was encouraged to increase oral fluid intake. If the patient has any additional symptoms or concerns, the patient should either return to the emergency department or visit her primary care facility. - My Orders Last 24 Hours: My Active Orders 07/04/18 12:38 HCG QUALITATIVE,URINE [URCHEM] Stat UA RFX VAISHALI AND CULT IF INDIC [URIN] Urgent - Assessment/Plan Last 24 Hours: My Active Orders 07/04/18 12:38 HCG QUALITATIVE,URINE [URCHEM] Stat UA RFX VAISHALI AND CULT IF INDIC [URIN] Urgent
[2018-07-04 13:15] LABS: ANION GAP 13.4; CHLORIDE,CL 106 mmol/L (101-111); SODIUM,NA 136 mmol/L (135-145)
[2018-07-04 14:06] VITALS: BP 130/68
== END 2018-07-04 14:25 | disposition home or self-care (01) ==
LOC: DL.ED 12:25
DX: G44.209 Tension-type headache, unspecified, not intractable (principal); F17.210 Nicotine dependence, cigarettes, uncomplicated
CPT/HCPCS: 36415; 80053; 81001; 81025; 85025; 96365; 96372; 96375; 99284; J1885; J2550; J7030

== ENCOUNTER 2019-07-02 10:07 | Emergency (ER) | payer MEDICAID, OTHER ==
[2019-07-02 10:17] VITALS: BP 147/105; PULSE 123
--- NOTE | 2019-07-02 10:46 | EDM.PDOC ---
ED HPI GENERAL MEDICAL PROBLEM - General Chief Complaint: ENT Problem Stated Complaint: BAD TOOTHACHE Time Seen by Provider: 07/02/19 10:35 Source of Information: Reports: Patient History Limitations: Reports: No Limitations - History of Present Illness INITIAL COMMENTS - FREE TEXT/NARRATIVE: This 24 yo female patient reports to the ED with left upper dental pain. The patient reports she has noticed increased pain over the past 5 days. The patient has been taking ibuprofen (800 mg) which has helped with the pain. The patient reports she does not have enough gas in her vehicle to get out the [place] to see the dentist at this time. 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 LEACH CELL OPERATOR History: , twin Musculoskeletal History: Reports: None Neurological History: Reports: None Psychiatric History: Reports: None Endocrine/Metabolic History: Reports: None Hematologic History: Reports: None Immunologic History: Reports: None Oncologic (Cancer) History: Reports: None Dermatologic History: Reports: None - Infectious Disease History Infectious Disease History: Reports: None - Past Surgical History Head Surgeries/Procedures: Reports: None GI Surgical History: Reports: Cholecystectomy Social & Family History - Family History Family Medical History: Noncontributory - Tobacco Use Smoking Status *Q: Current Some Day Smoker Years of Tobacco use: 9 Packs/Tins Daily: 0.1 Second Hand Smoke Exposure: Yes - Caffeine Use Caffeine Use: Reports: Soda - Recreational Drug Use Recreational Drug Use: Yes Drug Use in Last 12 Months: Yes Recreational Drug Type: Reports: Marijuana/Hashish - Living Situation & Occupation Living situation: Reports: with Family ED ROS ENT - Review of Systems Review Of Systems: Comprehensive ROS is negative, except as noted in HPI. ED EXAM, ENT - Physical Exam Exam: See Below Exam Limited By: No Limitations General Appearance: Alert, WD/WN, Mild Distress Eye Exam: Bilateral Eye: EOMI, PERRL Ears: Normal External Exam, Hearing Grossly Normal Nose: Normal Inspection, Normal Mucousa, No Blood Mouth/Throat: Dental Pain (left upper ), Dental Tenderness. No: Dental Abcess, Dental Trauma Head: Atraumatic, Normocephalic Neck: Full Range of Motion Respiratory/Chest: No Respiratory Distress Cardiovascular: Normal Peripheral Pulses, Regular Rate, Rhythm (Female) Exam: Deferred Rectal (Female) Exam: Deferred Back: Normal Inspection, Full Range of Motion Extremities: Normal Inspection, Normal Range of Motion, Non-Tender, No Pedal Edema, Normal Capillary Refill Neurological: Alert, Oriented, CN II-XII Intact, Normal Cognition, Normal Gait, Normal Reflexes, No Motor/Sensory Deficits Psychiatric: Normal Affect, Normal Mood Skin: Warm, Dry, Intact, Normal Color, No Rash Lymphatic: No Adenopathy Course - Vital Signs Last Recorded V/S: Last Vital Signs Temp 36.1 C 07/02/19 10:12 Pulse 123 H 07/02/19 10:12 Resp 18 07/02/19 10:12 BP 147/105 H 07/02/19 10:12 Pulse Ox 97 07/02/19 10:12 Departure - Departure Time of Disposition: 10:46 Disposition: Home, Self-Care 01 Condition: Fair Clinical Impression: Dental implant pain Qualifiers: Encounter type: initial encounter Qualified Code(s): T85.848A - Pain due to other internal prosthetic devices, implants and grafts, initial encounter - Discharge Information *PRESCRIPTION DRUG MONITORING PROGRAM REVIEWED*: Not Applicable *COPY OF PRESCRIPTION DRUG MONITORING REPORT IN PATIENT CAROLYNN: Not Applicable Care Plan Goals: The patient was advised of the examination results during the visit. The patient was given a script for Viscous Lidocaine 2% #100 mL to apply 5 mL to a cottonball to the area of concern every 6 hours as needed. The patient was encouraged to visit her dentist for continued evaluation and management. If the patient has any additional symptoms or concerns, the patient should either return to the emergency department or visit her dentist. Sepsis Event Note - Evaluation Sepsis Screening Result: No Definite Risk - Focused Exam Vital Signs: Vital Signs Temp Pulse Resp BP Pulse Ox 07/02/19 10:12 36.1 C 123 H 18 147/105 H 97 Date Exam was Performed: 07/02/19 Time Exam was Performed: 10:39
== END 2019-07-02 11:04 | disposition home or self-care (01) ==
LOC: DL.ED 10:07
DX: K08.89 Other specified disorders of teeth and supporting structures (principal); F17.210 Nicotine dependence, cigarettes, uncomplicated
CPT/HCPCS: 99282